=== PATIENT | male | born 1950 | race Caucasian/White ===

== ENCOUNTER 2022-03-17 01:17 | Day surgery (SDC) | payer OTHER ==
[2022-03-17 16:25] LABS: BASOPHILS ABSOLUTE AUTO 0.05 K/mm3 (0.00-0.23); BASOPHILS PERCENT AUTO 1 % (0-2); EOSINOPHILS ABSOLUTE AUTO 0.11 K/mm3 (0.00-0.68); EOSINOPHILS PERCENT AUTO 2 % (0-6); Hematocrit 40.7 % (37.0-53.0); IMMATURE GRAN ABSOLUTE AUTO 0.02 K/mm3 (0.00-0.10); IMMATURE GRAN PERCENT AUTO 0 % (0-1); LYMPHOCYTES PERCENT AUTO 21 % (21-46); MONOCYTES ABSOLUTE AUTO 0.95 K/mm3 (0.16-1.47); MONOCYTES PERCENT AUTO 20 % (4-13); Mean Corpuscular HGB 30.6 pg (26.0-34.0); Mean Corpuscular HGB Conc 34.4 g/dL (31.5-36.5); Mean Corpuscular Volume 89 fL (80-100); Mean Platelet Volume 10.3 fL (9.1-12.4); NEUTROPHILS ABSOLUTE AUTO 2.69 K/mm3 (1.96-9.15); NEUTROPHILS PERCENT AUTO 56 % (41-73); Platelet Count 295 K/mm3 (150-400); RDW Coefficient Variation 14.1 % (11.7-14.2); RDW Standard Deviation 46.2 fL (35.1-46.3); Red Blood Cell Count 4.57 M/mm3 (4.30-5.90); White Blood Cell Count 4.82 K/mm3 (4.00-11.30)
[2022-03-17 17:13] LABS: Albumin, Blood 3.1 g/dL (3.4-5.0); Bilirubin, Total 0.3 mg/dL (0.1-1.0); Bun/Creatinine Ratio 12.2 (12.0-20.0); Calcium, Blood 8.6 mg/dL (8.5-10.1); Creatinine, Blood 0.74 mg/dL (0.60-1.20); Globulin, Blood 3.1 g/dL (2.2-4.0); Potassium, Blood 3.6 mmol/L (3.5-5.5); Total Protein, Blood 6.2 g/dL (6.4-8.2)
== END 2022-03-17 14:56 | disposition home or self-care (01) ==
LOC: ATC 01:17
PROVIDERS: Internal Medicine Infectious Disease
DX: G06.0 Intracranial abscess and granuloma (principal)
CPT/HCPCS: 36592; 80053; 85025

== ENCOUNTER 2022-03-22 00:22 | Day surgery (SDC) | payer OTHER ==
[2022-03-22] MEDS ORDERED: OMEP20ER PO (09:02)
[2022-03-22] MEDS ORDERED: ELIQUIS5 M2 PO (09:02)
[2022-03-22] MEDS ORDERED: FLAGYL500 M1 PO (09:04)
[2022-03-22] MEDS ORDERED: CEFTRIAXONE2 G1 IV (09:04)
[2022-03-22 10:21] LABS: BASOPHILS ABSOLUTE AUTO 0.04 K/mm3 (0.00-0.23); BASOPHILS PERCENT AUTO 1 % (0-2); EOSINOPHILS ABSOLUTE AUTO 0.19 K/mm3 (0.00-0.68); EOSINOPHILS PERCENT AUTO 5 % (0-6); Hemoglobin 14.8 g/dL (13.5-17.5); IMMATURE GRAN ABSOLUTE AUTO 0.04 K/mm3 (0.00-0.10); IMMATURE GRAN PERCENT AUTO 1 % (0-1); LYMPHOCYTES ABSOLUTE AUTO 0.84 K/mm3 (0.84-5.20); LYMPHOCYTES PERCENT AUTO 20 % (21-46); MONOCYTES ABSOLUTE AUTO 0.58 K/mm3 (0.16-1.47); MONOCYTES PERCENT AUTO 14 % (4-13); Mean Corpuscular HGB 30.1 pg (26.0-34.0); Mean Corpuscular HGB Conc 33.6 g/dL (31.5-36.5); Mean Corpuscular Volume 89 fL (80-100); Mean Platelet Volume 11.2 fL (9.1-12.4); NEUTROPHILS ABSOLUTE AUTO 2.57 K/mm3 (1.96-9.15); NEUTROPHILS PERCENT AUTO 60 % (41-73); Platelet Count 285 K/mm3 (150-400); RDW Standard Deviation 45.8 fL (35.1-46.3); Red Blood Cell Count 4.92 M/mm3 (4.30-5.90); White Blood Cell Count 4.26 K/mm3 (4.00-11.30)
[2022-03-22 11:04] LABS: Albumin/Globulin Ratio 0.9 (0.8-1.8); Bilirubin, Total 0.3 mg/dL (0.1-1.0); Bun/Creatinine Ratio 12.1 (12.0-20.0); Calcium, Blood 8.5 mg/dL (8.5-10.1); Creatinine, Blood 0.82 mg/dL (0.60-1.20); Globulin, Blood 3.2 g/dL (2.2-4.0); Potassium, Blood 3.6 mmol/L (3.5-5.5); Total Protein, Blood 6.2 g/dL (6.4-8.2)
[2022-04-08] MEDS ORDERED: HYDHCL25 PO (00:29)
== END 2022-03-22 09:10 | disposition home or self-care (01) ==
LOC: ATC 00:22
PROVIDERS: Internal Medicine Infectious Disease
DX: G06.0 Intracranial abscess and granuloma (principal)
CPT/HCPCS: 36592; 80053; 85025

== ENCOUNTER 2022-03-29 00:29 | Day surgery (SDC) | payer OTHER ==
[~2022-03-29 00:29] MED LIST: CEFTRIAXONE2 G1 IV; ELIQUIS5 M2 PO; FLAGYL500 M1 PO; OMEP20ER PO
[2022-03-29 09:01] LABS: BASOPHILS ABSOLUTE AUTO 0.11 K/mm3 (0.00-0.23); BASOPHILS PERCENT AUTO 2 % (0-2); EOSINOPHILS ABSOLUTE AUTO 0.56 K/mm3 (0.00-0.68); EOSINOPHILS PERCENT AUTO 9 % (0-6); Hematocrit 47.3 % (37.0-53.0); Hemoglobin 16.1 g/dL (13.5-17.5); IMMATURE GRAN ABSOLUTE AUTO 0.05 K/mm3 (0.00-0.10); IMMATURE GRAN PERCENT AUTO 1 % (0-1); LYMPHOCYTES PERCENT AUTO 17 % (21-46); MONOCYTES PERCENT AUTO 14 % (4-13); Mean Corpuscular HGB 29.9 pg (26.0-34.0); Mean Corpuscular Volume 88 fL (80-100); Mean Platelet Volume 10.7 fL (9.1-12.4); NEUTROPHILS PERCENT AUTO 57 % (41-73); Platelet Count 320 K/mm3 (150-400); RDW Coefficient Variation 13.9 % (11.7-14.2); RDW Standard Deviation 44.7 fL (35.1-46.3); Red Blood Cell Count 5.39 M/mm3 (4.30-5.90); White Blood Cell Count 6.32 K/mm3 (4.00-11.30)
[2022-03-29] MEDS ORDERED: LEVETIRACETAM1000 M1 PO (09:16)
[2022-03-29 11:28] LABS: Albumin, Blood 3.1 g/dL (3.4-5.0); Albumin/Globulin Ratio 1.1 (0.8-1.8); Bilirubin, Total 0.4 mg/dL (0.1-1.0); Bun/Creatinine Ratio 9.6 (12.0-20.0); Calcium, Blood 8.6 mg/dL (8.5-10.1); Creatinine, Blood 0.84 mg/dL (0.60-1.20); Globulin, Blood 2.8 g/dL (2.2-4.0); Potassium, Blood 3.9 mmol/L (3.5-5.5); Total Protein, Blood 5.9 g/dL (6.4-8.2)
== END 2022-03-29 08:50 | disposition home or self-care (01) ==
LOC: ATC 00:29
PROVIDERS: Internal Medicine Infectious Disease
DX: G06.0 Intracranial abscess and granuloma (principal)
CPT/HCPCS: 36592; 80053; 85025

== ENCOUNTER 2022-04-05 01:13 | Day surgery (SDC) | payer OTHER ==
[~2022-04-05 01:13] MED LIST changes: +LEVETIRACETAM1000 M1 PO
[2022-04-05 10:14] LABS: BASOPHILS PERCENT AUTO 2 % (0-2); EOSINOPHILS ABSOLUTE AUTO 1.07 K/mm3 (0.00-0.68); EOSINOPHILS PERCENT AUTO 19 % (0-6); Hematocrit 43.4 % (37.0-53.0); Hemoglobin 14.8 g/dL (13.5-17.5); IMMATURE GRAN ABSOLUTE AUTO 0.05 K/mm3 (0.00-0.10); IMMATURE GRAN PERCENT AUTO 1 % (0-1); LYMPHOCYTES ABSOLUTE AUTO 0.85 K/mm3 (0.84-5.20); LYMPHOCYTES PERCENT AUTO 15 % (21-46); MONOCYTES ABSOLUTE AUTO 0.83 K/mm3 (0.16-1.47); MONOCYTES PERCENT AUTO 15 % (4-13); Mean Corpuscular HGB 29.8 pg (26.0-34.0); Mean Corpuscular HGB Conc 34.1 g/dL (31.5-36.5); Mean Corpuscular Volume 87 fL (80-100); Mean Platelet Volume 10.9 fL (9.1-12.4); NEUTROPHILS ABSOLUTE AUTO 2.81 K/mm3 (1.96-9.15); NEUTROPHILS PERCENT AUTO 49 % (41-73); Platelet Count 269 K/mm3 (150-400); RDW Coefficient Variation 14.1 % (11.7-14.2); RDW Standard Deviation 45.2 fL (35.1-46.3); Red Blood Cell Count 4.97 M/mm3 (4.30-5.90); White Blood Cell Count 5.71 K/mm3 (4.00-11.30)
[2022-04-05 10:36] LABS: Albumin, Blood 2.9 g/dL (3.4-5.0); Bilirubin, Total 0.3 mg/dL (0.1-1.0); Bun/Creatinine Ratio 11.8 (12.0-20.0); Calcium, Blood 8.4 mg/dL (8.5-10.1); Creatinine, Blood 0.93 mg/dL (0.60-1.20); Globulin, Blood 2.8 g/dL (2.2-4.0); Potassium, Blood 3.7 mmol/L (3.5-5.5); Total Protein, Blood 5.7 g/dL (6.4-8.2)
[2022-04-08] MEDS ORDERED: HYDHCL25 PO (00:29)
== END 2022-04-05 09:22 | disposition home or self-care (01) ==
LOC: ATC 01:13
PROVIDERS: Internal Medicine Infectious Disease
DX: G06.0 Intracranial abscess and granuloma (principal)
CPT/HCPCS: 36592; 80053; 85025

== ENCOUNTER 2022-04-08 15:32 | Emergency (ER) | payer OTHER ==
[~2022-04-08] VITALS: Ht 195.6 cm; Wt 81.7 kg
[~2022-04-08 15:32] MED LIST changes: +HYDHCL25 PO
== END 2022-04-08 16:53 | disposition home or self-care (01) ==
LOC: ER 15:32
DX: Z45.2 Encounter for adjustment and management of vascular access device (principal); K21.9 Gastro-esophageal reflux disease without esophagitis; Z79.01 Long term (current) use of anticoagulants; Z79.899 Other long term (current) drug therapy
CPT/HCPCS: 99282; C1751

== ENCOUNTER 2022-04-11 00:58 | Day surgery (SDC) | payer OTHER ==
[2022-04-11 08:39] LABS: BASOPHILS ABSOLUTE AUTO 0.11 K/mm3 (0.00-0.23); BASOPHILS PERCENT AUTO 2 % (0-2); EOSINOPHILS ABSOLUTE AUTO 1.44 K/mm3 (0.00-0.68); EOSINOPHILS PERCENT AUTO 21 % (0-6); Hematocrit 41.7 % (37.0-53.0); Hemoglobin 14.6 g/dL (13.5-17.5); IMMATURE GRAN ABSOLUTE AUTO 0.02 K/mm3 (0.00-0.10); IMMATURE GRAN PERCENT AUTO 0 % (0-1); LYMPHOCYTES ABSOLUTE AUTO 1.21 K/mm3 (0.84-5.20); LYMPHOCYTES PERCENT AUTO 18 % (21-46); MONOCYTES ABSOLUTE AUTO 0.78 K/mm3 (0.16-1.47); MONOCYTES PERCENT AUTO 11 % (4-13); Mean Corpuscular HGB 30.1 pg (26.0-34.0); Mean Corpuscular Volume 86 fL (80-100); Mean Platelet Volume 10.8 fL (9.1-12.4); NEUTROPHILS ABSOLUTE AUTO 3.32 K/mm3 (1.96-9.15); NEUTROPHILS PERCENT AUTO 48 % (41-73); Platelet Count 277 K/mm3 (150-400); RDW Coefficient Variation 14.1 % (11.7-14.2); RDW Standard Deviation 44.3 fL (35.1-46.3); Red Blood Cell Count 4.85 M/mm3 (4.30-5.90); White Blood Cell Count 6.88 K/mm3 (4.00-11.30)
[2022-04-11 08:56] LABS: Alanine Aminotransfer (ALT/SGP 36 U/L (12-78); Albumin, Blood 2.9 g/dL (3.4-5.0); Albumin/Globulin Ratio 0.9 (0.8-1.8); Alk Phos 90 U/L (50-136); Anion Gap 8 mmol/L (6-16); Aspartate Aminotrans (AST/SGOT 28 U/L (12-37); Bilirubin, Total 0.6 mg/dL (0.1-1.0); Blood Urea Nitrogen 6 mg/dL (8-24); Bun/Creatinine Ratio 7.8 (12.0-20.0); CO2, Blood 22 mmol/L (21-32); Calcium, Blood 8.6 mg/dL (8.5-10.1); Chloride, Blood 112 mmol/L (98-108); Creatinine, Blood 0.77 mg/dL (0.60-1.20); Globulin, Blood 3.1 g/dL (2.2-4.0); Glomerular Filtration Rate 96 (60-); Glucose, Blood 112 mg/dL (70-99); Potassium, Blood 3.5 mmol/L (3.5-5.5); Sodium, Blood 142 mmol/L (136-145); Vancomycin, Trough 17.3 ug/mL (5.0-10.0)
[2022-04-11] MEDS ORDERED: Vancomycin1 GM/2501 IV (09:01)
--- NOTE | 2022-04-11 10:41 | NUR ---
LAB RESULTS FAXED TO [facility] SARITA VERDUZCO
== END 2022-04-11 08:33 | disposition home or self-care (01) ==
LOC: ATC 00:58
PROVIDERS: Internal Medicine Infectious Disease
DX: G06.0 Intracranial abscess and granuloma (principal)
CPT/HCPCS: 36592; 80053; 80202; 85025

== ENCOUNTER 2022-04-14 02:33 | Day surgery (SDC) | payer OTHER ==
[~2022-04-14 02:33] MED LIST changes: +Vancomycin1 GM/2501 IV
[2022-04-14 08:50] LABS: BASOPHILS ABSOLUTE AUTO 0.08 K/mm3 (0.00-0.23); BASOPHILS PERCENT AUTO 1 % (0-2); EOSINOPHILS PERCENT AUTO 16 % (0-6); Hematocrit 40.6 % (37.0-53.0); IMMATURE GRAN ABSOLUTE AUTO 0.03 K/mm3 (0.00-0.10); IMMATURE GRAN PERCENT AUTO 1 % (0-1); LYMPHOCYTES ABSOLUTE AUTO 1.19 K/mm3 (0.84-5.20); LYMPHOCYTES PERCENT AUTO 19 % (21-46); MONOCYTES ABSOLUTE AUTO 0.91 K/mm3 (0.16-1.47); MONOCYTES PERCENT AUTO 14 % (4-13); Mean Corpuscular HGB 29.8 pg (26.0-34.0); Mean Corpuscular HGB Conc 34.5 g/dL (31.5-36.5); Mean Corpuscular Volume 86 fL (80-100); Mean Platelet Volume 11.1 fL (9.1-12.4); NEUTROPHILS ABSOLUTE AUTO 3.21 K/mm3 (1.96-9.15); NEUTROPHILS PERCENT AUTO 50 % (41-73); Platelet Count 278 K/mm3 (150-400); RDW Coefficient Variation 14.2 % (11.7-14.2); RDW Standard Deviation 45.1 fL (35.1-46.3); White Blood Cell Count 6.42 K/mm3 (4.00-11.30)
[2022-04-14 09:33] LABS: CPK Creatine Kinase 34 U/L (39-308)
[2022-04-14 09:34] LABS: Anion Gap 9 mmol/L (6-16); Blood Urea Nitrogen 9 mg/dL (8-24); Bun/Creatinine Ratio 11.9 (12.0-20.0); CO2, Blood 22 mmol/L (21-32); Calcium, Blood 8.5 mg/dL (8.5-10.1); Chloride, Blood 111 mmol/L (98-108); Creatine Kinase MB <1.0 ng/mL (0.0-3.6); Creatine Kinase MB Index Unable to Calculate (0.0-4.0); Creatinine, Blood 0.76 mg/dL (0.60-1.20); Glomerular Filtration Rate 97 (60-); Glucose, Blood 120 mg/dL (70-99); Potassium, Blood 3.5 mmol/L (3.5-5.5); Sodium, Blood 142 mmol/L (136-145); Vancomycin, Trough 17.2 ug/mL (5.0-10.0)
== END 2022-04-14 08:20 | disposition home or self-care (01) ==
LOC: ATC 02:33
PROVIDERS: Internal Medicine Infectious Disease
DX: G06.0 Intracranial abscess and granuloma (principal)
CPT/HCPCS: 36415; 80048; 80202; 82550; 82553; 85025; 99211

== ENCOUNTER 2022-04-16 00:17 | Day surgery (SDC) | payer OTHER | END 2022-04-16 11:08 | disposition home or self-care (01) | LOC: ATC 00:17 | DX: G06.0 Intracranial abscess and granuloma (principal) | CPT/HCPCS: 99211 ==

== ENCOUNTER 2022-05-10 07:16 | Day surgery (SDC) | payer OTHER ==
[~2022-05-10] VITALS: Ht 195.6 cm; Wt 76.0 kg
[2022-05-10] MEDS ORDERED: MELATONIN 5 MG1 EACH PO (07:33)
--- NOTE | 2022-05-10 09:15 | NUR ---
PATIENT ARRIVED BACK TO RECOVERY ROOM, A/OX4 WITH SOME DROWSINESS. R SUBCLAVIAN DRESSING C/D/I, SOFT/NONTENDER. NO EVIDENCE OF HEMATOMA. PATIENT DENYING ANY PAIN. VSS ON ROOM AIR.
--- NOTE | 2022-05-10 11:10 | NUR ---
PATIENT DISCHARGED HOME AT THIS TIME. PATIENT INSTRUCTIONS AND HOME MED LIST PRINTED AND DISCUSSED WITH PATIENT. ALL QUESTIONS WERE ANSWERED. R NECK DRESSING C/D/I, SOFT/NONTENDER, NO EVIDENCE OF HEMATOMA. PATIENT DENYING ANY PAIN. PATIENT TOLERATED PO INTAKE WELL. PATIENT VOIDING APPROPRIATELY. ALL BELONGINGS RETURNED TO PATIENT. PIV REMOVED, CATHETER INTACT. VSS ON ROOM AIR. PATIENT WHEELED OUT TO CAR VIA WHEELCHAIR AND DISCHARGE INSTRUCTIONS DISCUSSED WITH SONRODOLFO.
== END 2022-05-10 22:42 | disposition home or self-care (01) ==
LOC: MHTC 07:16
DX: Z45.89 Encounter for adjustment and management of other implanted devices (principal); Z95.828 Presence of other vascular implants and grafts; Z86.718 Personal history of other venous thrombosis and embolism; K21.9 Gastro-esophageal reflux disease without esophagitis; Z87.891 Personal history of nicotine dependence; Z79.899 Other long term (current) drug therapy; Z79.01 Long term (current) use of anticoagulants
CPT/HCPCS: 37193; 76937; 99152; C1769; C1773; C1894; J1644; J2250; J3010; J7030; Q9967